=== PATIENT | female | born 1945 | race Caucasian/White ===

== ENCOUNTER → 2016-10-24 10:06 | Outpatient (CLI) | payer MEDICARE, BC ==
[2016-02-08 12:21] VITALS: BMI 33.9
[~2016-10-24 10:06] MED LIST: CARAFATE1 G PO; CYMBALTA60 MG PO; DILAUDID2 MG PO; DULERA 200 MCG8.8 GM INH; FUROSEMIDE40 MG PO; HYDROCODONE-APA1 TAB PO; MIRAPEX1 MG PO; PROAIR HFA8.5 GM INH; PROTONIX40 MG PO; RESTORIL15 MG PO; SPIRIVA18 MCG INH; THEOPHYLLINE A300 MG PO; ZANAFLEX4 MG PO; ZOFRAN ODT4 MG/UDTAB PO
== END | disposition home or self-care (01) ==
LOC: D.US 10:06
DX: L03.119 Cellulitis of unspecified part of limb (principal); M79.661 Pain in right lower leg; M79.662 Pain in left lower leg

== ENCOUNTER → 2017-02-01 18:56 | Outpatient (CLI) | payer MEDICARE, BC ==
[2016-02-08 12:21] VITALS: BMI 33.9
== END | disposition home or self-care (01) ==
LOC: D.LABREF 18:56
DX: M16.11 Unilateral primary osteoarthritis, right hip (principal); Z11.8 Encounter for screening for other infectious and parasitic diseases

== ENCOUNTER → 2017-03-07 19:45 | Outpatient (CLI) | payer MEDICARE, BC ==
[2016-02-08 12:21] VITALS: BMI 33.9
== END | disposition home or self-care (01) ==
LOC: D.LABREF 19:45
DX: M16.11 Unilateral primary osteoarthritis, right hip (principal); Z11.8 Encounter for screening for other infectious and parasitic diseases

== ENCOUNTER 2017-03-15 10:00 | Inpatient (IN) | payer MEDICARE, BC ==
[~2017-03-15 10:00] MED LIST changes: +K-TAB10 MEQ PO; -MIRAPEX1 MG PO; +MIRAPEX1.5 MG PO; +THEOPHYLLINE A200 MG PO; -THEOPHYLLINE A300 MG PO; +TRAZODONE HCL50 MG PO
[2017-03-15 11:59] LABS: BASOPHILS 0.3 % (0-2); HEMATOCRIT 40.7 % (36.0-48.0); HEMOGLOBIN 13.5 g/dL (12-16); IMMATURE GRANULOCYTES 0.1 % (0-5); LYMPHOCYTES 23.9 % (15-50); MCH 29.9 pg (26.0-34.0); MCHC 33.2 g/dL (31.0-37.0); MEAN PLATELET VOLUME 9.5 fL (7.4-10.4); MONOCYTES 8.5 % (2-11); NEUTROPHILS 62.2 % (40-80); PLATELET COUNT 207 10x3/uL (130-400); RBC 4.52 10x6/uL (4.00-5.40); RDW 14.4 % (11.5-14.5); WBC 7.4 10x3/uL (4.8-10.8)
[2017-03-15 12:09] LABS: CALCIUM 9.7 mg/dL (8.5-10.1); CARBON DIOXIDE 30.4 mmol/L (21.0-32.0); CREATININE - SERUM 0.9 mg/dL (0.6-1.3)
[2017-03-15 12:12] LABS: ANION GAP 11.6 mmol/L (8-16)
[2017-03-15 12:28] LABS: APTT 22.7 SECONDS (22.8-39.4); INR 0.94 (0.85-1.17); PROTIME 12.4 SECONDS (11.6-15.0)
[2017-03-15 12:43] LABS: APPEARANCE CLEAR (CLEAR); BACTERIA FEW /hpf (NONE SEEN); BILIRUBIN NEGATIVE (NEGATIVE); COLOR DK YELLOW (YELLOW); EPITHELIAL CELLS 0-5 /hpf (0-5); GLUCOSE NEGATIVE (NEGATIVE); KETONE NEGATIVE (NEGATIVE); MUCUS <1+ /lpf (NONE SEEN); NITRITE NEGATIVE (NEGATIVE); PROTEIN NEGATIVE (NEGATIVE); SPECIFIC GRAVITY 1.015 (1.005-1.020); UROBILINOGEN NORMAL (NORMAL); WHITE CELLS - URINE 0-5 /hpf (0-5)
[2017-03-20 11:55] VITALS: BMI 34.3
--- NOTE | 2017-03-20 16:07 | NUR ---
IV PATIENT HAD UPON ARRIVAL TO PACU INFILTRATED. NEW 22G IV STARTED LEFT ARM.
--- NOTE | 2017-03-20 16:34 | NUR ---
PATIENT STATES PAIN 10/10 AFTER 20 MG MORPHINE. PATIENT TRANSFERRED TO FLOOR TO RN TRANSITIONAL
[2017-03-20 16:54] VITALS: BP 129/75
--- NOTE | 2017-03-20 16:55 | NUR ---
RECIEVED PT TO FLOOR FROM RECOVERY. POST-OP VITALS INITIATED. ASSESSMENT DONE PER FLOWSHEET. BED IN LOW POSITION AND CALL LIGHT WITHIN REACH.
[2017-03-20 17:10] VITALS: BP 138/62
[2017-03-20 17:25] VITALS: BP 139/73
[2017-03-20 17:39] VITALS: BP 129/75; BMI 34.3
[2017-03-20 17:40] VITALS: BP 126/58
[2017-03-20 18:11] LABS: INR 1.01 (0.85-1.17); PROTIME 13.2 SECONDS (11.6-15.0)
[2017-03-20 20:00] VITALS: BP 132/65
--- NOTE | 2017-03-20 23:49 | NUR ---
REC'D.EYES CLOSED RESP. DEEP AND EVEN. 02 4L NC O2 SATS 89%.DEEP BREATHS INCENTIVE SPIROMETER ENCOURAGED. SATS UP TO 93%. AT BEDSIDE.DRSG. DRY AND INTACT TORIGHT HIP.FOOT PINK AND WARM PEDAL PULSE PRESENT.WILL CONTINUE TO MONITOR FOR ANY CHGES. IN NEUROVASCULAR STATUS AND FOLLOW CURRENT PLAN OF CARE.
[2017-03-21] VITALS: BP 145/77
--- NOTE | 2017-03-21 01:24 | NUR ---
RN NOTE: PT RESTING IN SEMI REYNOLDS'S POSITION WATCHING TV. IV IN LEFT FA PATENT WITH 1/2 NS INFUSING AT10O ML / HR. O2 IN USE VIA NC AT 3L. PT REQUESTING TO USE BEDPAN...ASSISTED WITH USE WITH MATERIAL HANDLING CREW SUPERVISOR. SCD'S IN PLACE ON BLE. WILL CONTINUE TO MONITOR FOR NEEDS.
--- NOTE | 2017-03-21 03:41 | NUR ---
PT. 02 SATS CONTINUE TO DROP TO 89% STATES AND NURSES SAID I CAN HAVE A PUSH BUTTON,EXPLAINED DESAT VS IV PAIN MED STATES RATHER NOT BREATH TO HURT'
[2017-03-21 04:00] VITALS: BP 121/49
[2017-03-21 05:41] LABS: HEMATOCRIT 31.1 % (36.0-48.0); MCH 29.2 pg (26.0-34.0); MCHC 32.2 g/dL (31.0-37.0); MCV 90.9 fL (80.0-100.0); RBC 3.42 10x6/uL (4.00-5.40); RDW 14.5 % (11.5-14.5); WBC 7.4 10x3/uL (4.8-10.8)
--- NOTE | 2017-03-21 07:30 | NUR ---
PATIENT RECEIVED IN MID REYNOLDS POSITION ALERT AND RESTING QUIETLY. NO SIGNS OF DISTRESS NOTED. PROVIDED WITH COFFEE PER REQUEST. DENIES NEEDS. SIDE RAILS UP X2. BED IN LOW POSITION. CALL LIGHT AND ACCESS CONTROL OFFICER BUTTON IN REACH. BED ALARM ON.
[2017-03-21 08:20] VITALS: BP 109/44
--- NOTE | 2017-03-21 08:43 | NUR ---
PATIENT ALERT IN BED. NO SIGNS OF DISTRESS NOTED. SCHEDULED MEDICATION ADMINISTERED. SCDS ON BILATERALLY. ENCOURAGED USE OF INCENTIVE SPIROMETER. DENIES NEEDS. SIDE RAILS UP X2. BED IN LOW POSITION. CALL LIGHT AND MULE RIDER BUTTON IN REACH.
--- NOTE | 2017-03-21 10:00 | NUR ---
IV TO LEFT WRIST PARTIALLY OUT. IV D/C WITH CATH TIP INTACT. SITE COVERED WITH GAUZE AND BANDAID. NEW 22 GAUGE IV SITED TO LEFT FOREARM X1 ATTEMPT. FLUSHES EASY WITH BRISK BLOOD RETURN PRESENT. SECURED WITH TAPE AND TEGADERM. IVF INFUSING WITHOUT DIFFICULTY.
--- NOTE | 2017-03-21 12:30 | NUR ---
PER CARMEN SUN DRESSING TO RIGHT HIP SATURATED AND LEAKING. DRESSING CHANGED. NEW AQUACEL AG PLACED OVER INCISION. LINEN CHANGE COMPLETE.
[2017-03-21 12:47] VITALS: BP 118/52
--- NOTE | 2017-03-21 13:05 | NUR ---
ICE PACK PLACED TO RIGHT HIP. SCDS ON BILATERALLY. FAMILY PRESENT. DENIES NEEDS. SIDE RAILS UP X2. BED IN LOW POSITION. CALL LIGHT IN REACH.
[2017-03-21 15:54] VITALS: BP 105/54
--- NOTE | 2017-03-21 17:20 | NUR ---
ASSISTED UP TO CHAIR FOR DINNER. INSTRUCTED NOT TO GET UP BY SELF AND CALL FOR HELP WHEN READY TO GO BACK TO BED. STATES UNDERSTANDING. CALL LIGHT IN REACH. FAMILY AT BEDSIDE.
--- NOTE | 2017-03-21 18:32 | OP ---
PATIENT NAME: KARISHMA PAGE MEDICAL RECORD: [id number] :45 LOCATION:[facility] ADMISSION DATE:03/20/17 SURGEON: SURESH MARADIAGA MD DATE OF OPERATION: 03/20/2017 PREOPERATIVE DIAGNOSIS: Degenerative arthritis, right hip. POSTOPERATIVE DIAGNOSIS: Degenerative arthritis, right hip. PROCEDURE: Right total hip arthroplasty. SURGEON: Suresh Maradiaga MD. ANESTHESIA: General. INTRAOPERATIVE COMPLICATIONS: None. SUMMARY OF PATHOLOGIC FINDINGS: The patient had severe osteoarthritis of the right hip consistent with the preoperative radiographs. IMPLANTS USED: [place] Anato hip stem size 6 right, Tritanium hemispherical cluster hole shell X3 poly insert 36-mm alpha code E, LFIT anatomic femoral head size 36 standard. ESTIMATED BLOOD LOSS: 300 cc. OPERATIVE SUMMARY IN DETAIL: After obtaining the appropriate preoperative orthopedic surgery consent as well as anesthetic consultation, evaluation and clearance, the patient was brought to the operating room and placed on the operating table in supine position. After adequate general laryngeal mask airway was administered, the patient was placed in left lateral decubitus position. All pressure points were well padded to include down leg peroneal pad as well as axillary roll. The patient was held firmly to the operating table using the vacuum pack suction system. Left lower extremity and hip were then prepped and draped in a routine sterile fashion. Curvilinear incision was made over the greater trochanter, taken down to the level of the IT band, which was split in line with the fibers of the IT band to reveal the gluteus medius minimus attachment. These were reflected anteriorly. The hip capsule was split in a T-type fashion and saved for later reapproximation. The hip was dislocated and the femoral neck cut was made using the Anato femoral neck cutting guide. Attention then turned to the acetabulum. Acetabulum was serial and sequentially debrided of its labrum. Serial and sequential reaming were done for a size 54 cup, which was put into place with good fit and fill. Polyethylene was snapped into place, it was checked for stability. Attention was then turned to the proximal femur. Serial broaching was done for the Anato size 6. The Anato size [address] Trial was undertaken with the femoral head. It was felt that the 0 was the most appropriate. This was put into place, reduced, taken through range of motion and found to be stable. Wound was copiously irrigated. The hip capsule was closed with #2 Ethibond followed by reapproximation of the gluteus medius and minimus back to the greater trochanter in a transosseous fashion. The IT band was closed with #2 Ethibond. This was followed by #1 Vicryl, 2-0 Vicryl and skin lupillo. Sterile dressings were applied. Please note that intraoperative radiographs were taken and showed good position and placement of all components. The patient was awakened and taken to recovery in stable condition. All final needle and sponge counts were correct. OPERATIVE REPORT [id number] KARISHMA PAGE TRANSINT:[id number] Voice Confirmation ID: [id number] DOCUMENT ID: [id number] ASHWINI GONZALEZ, SURESH BILLINGS at 1832 CC: [id number] DICTATION DATE: 03/20/17 162 HUMAN RESOURCE INTERNSHIP: 03/20/17 194 ADM IN [facility] [address] [place] [address]
[2017-03-21 20:00] VITALS: BP 113/59
[2017-03-22] VITALS: BP 107/53
--- NOTE | 2017-03-22 01:57 | NUR ---
REC'D. CHGE OF SHIFT DRSG DRY AND INTACT TO RIGHT HIP.FOOT PINK AND WARM. PEDAL PULSE PRESENT.WIGGLE TOES AND DORSIFLEXES WITHOUT DIFFICULTY HEELS BRIDGED.WILL CONTINUE TO MONITOR FOR ANY CHGES. NEUROVASCULAR STATUS AND FOLLOW CURRENT PLAN OF CARE.
--- NOTE | 2017-03-22 02:30 | NUR ---
NO SIGNS OF ACUTE DISTRESS NOTED. PT IS LYING IN BED WITH HER CALL LIGHT IN REACH. BED IN LOWEST POSITION. WILL CONT TO MONITOR.
[2017-03-22 04:00] VITALS: BP 100/59
[2017-03-22 05:38] LABS: HEMATOCRIT 32.7 % (36.0-48.0); HEMOGLOBIN 10.5 g/dL (12-16); MCH 29.4 pg (26.0-34.0); MCHC 32.1 g/dL (31.0-37.0); MCV 91.6 fL (80.0-100.0); MEAN PLATELET VOLUME 9.8 fL (7.4-10.4); RBC 3.57 10x6/uL (4.00-5.40); RDW 14.8 % (11.5-14.5); WBC 6.2 10x3/uL (4.8-10.8)
--- NOTE | 2017-03-22 07:20 | NUR ---
PATIENT RECEIVED ALERT IN MID REYNOLDS POSITION. NO SIGNS OF DISTRESS NOTED. DENIES NEEDS. SIDE RAILS UP X2. BED IN LOW POSITION. CALL LIGHT IN REACH.
[2017-03-22 08:00] VITALS: BP 114/43
--- NOTE | 2017-03-22 08:50 | NUR ---
PATIENT ALERT IN BED. NO SIGNS OF DISTRESS NOTED. REPOSITIONED IN BED. SCHEDULED MEDICATION ADMINISTERED. DENIES NEEDS. SCDS ON BILATERALLY. SIDE RAILS UP X2. BED IN LOW POSITION. CALL LIGHT IN REACH. BED ALARM ON.
--- NOTE | 2017-03-22 11:00 | NUR ---
SITTING UP IN CHAIR AT BEDSIDE WITH FAMILY PRESENT. NO SIGNS OF DISTRESS NOTED. CALL LIGHT IN REACH.
[2017-03-22 12:26] VITALS: BP 122/79
--- NOTE | 2017-03-22 14:00 | NUR ---
PATIENT ASSISTED UP TO BSC THEN BACK TO BED. POSITIONED FOR COMFORT. DRESSING TO RIGHT HIP COMING LOOSE. DRESSING REMOVED. DOMINIC INTACT. NO REDNESS OR INFLAMMATION NOTED TO INCISION. NEW AQUACEL AG PLACED OVER INCISION. BRUISING NOTED TO RIGHT HIP. SIDE RAILS UP X2. BED IN LOW POSITION. CALL LIGHT IN REACH. BED ALARM ON.
--- NOTE | 2017-03-22 14:03 | NUR ---
Patient Name: KARISHMA PAGE Admission Status: Urgent Accout number: [id number] Admission Date: 03-20-2017 : 1945 Admission Diagnosis:UNILATERAL PRIMARY OSTEOARTHRITIS, RIGHT HIP Attending: SURESH MARADIAGA Current LOS: 2 Anticipated DC Date: Planned Disposition: Home Primary Insurance: MEDICARE A & B Discharge Planning Comments: CM met with patient to discuss discharge planning needs. Patient lives independently with her , Maxi. Maxi will be the one to drive her home at discharge. She stated that she has one flight of stairs to go up in her home. She hopkins s a bedside commode, o2 with a concentrator (from [employer]) walker and shower chair. She would like to do inpatient rehab. Referral sent. CM will continue to follow and assist with discharge planning needs. PCP: Silvio BATEMAN Maxi () [phone] Ccie: Parisa Allen
--- NOTE | 2017-03-22 16:05 | NUR ---
PATIENT IN MID REYNOLDS POSITION RESTING WITH EYES CLOSED. RESPIRATIONS EVEN AND UNLABORED. SIDE RAILS UP X3. BED IN LOW POSITION. CALL LIGHT IN REACH. BED ALARM ON.
[2017-03-22 16:07] VITALS: BP 109/55
[2017-03-22 20:00] VITALS: BP 111/52
--- NOTE | 2017-03-23 03:59 | NUR ---
IN BED ASSISTED TO BEDPAN REFUSED BEDSIDE COMMODE. VOIDED WITHOUT DIFFICULTY.DRSG. DRY AND INTACT TO LEFT HIP.FOOT PINK/WARM/PEDAL PULSE PRESENT.WIGGLES TOES AND DORSIFLEXES. WILL CONTINUE TO MONITOR FOR ANY CHGES. IN NEUROVASCULAR STATUS AND FOLLOW CURRENT PLAN OF CARE
[2017-03-23 04:00] VITALS: BP 114/56
--- NOTE | 2017-03-23 05:44 | NUR ---
RESTING IN BED WITH EYES CLOSED. NO S/S OF DISTRESS OBSERVED. IV TO LEFT FOREARM PATENT AND RUNNING 1/2 NS @ KVO. O2@3 LITERS PER N/C. RESP. EVEN AND UNLABORES. CALL LIGHT AND OVERBED TABLE IN REACH.
--- NOTE | 2017-03-23 07:24 | NUR ---
Rehab Note- Acute Rehab Prescreen order received. The patient had an elective YOLA and this is not a qualifying acute inpatient rehab diagnosis. Will follow at this time for any post op complications. Thank you for this referral! Kyung Trejo RN Clinical Liaison, [facility] Rehab
--- NOTE | 2017-03-23 07:47 | NUR ---
AWAKE AND ALERT WITH OXYGEN ON 3L VIA NC AND RESPIRATIONS EVEN AND NON LABORED. BED IN LOWEST POSITION WITH SRX1 AND WHEELS LOCKED. CALL LIGHT IN REACH, PROVIDED PT WITH COFFEE. WILL CONTINUE WITH PLAN OF CARE.
[2017-03-23 07:51] VITALS: BP 107/56
[2017-03-23] MEDS ORDERED: ELIQUIS2.5 MG PO (08:17)
[2017-03-23] MEDS ORDERED: COLACE100 MG PO (08:17)
[2017-03-23] MEDS ORDERED: PERCOCET 10/3251 TA1 PO (08:17)
--- NOTE | 2017-03-23 09:06 | NUR ---
SCHEDULED MEDICATIONS ADMINISTERED AT THIS TIME, WELL PRN PERCOCET FOR PAIN. WILL D/C SAND PLANT ATTENDANT PER ORDER. MEDICATIONS TAKEN WITHOUT DIFFICULTY. SPOKE WITH AURORA SUAREZ TO GET PT UPDRAFT TREATMENTS ORDERED. AT BEDSIDE AND CALL LIGHT IN REACH, WILL CONTINUE WITH PLAN OF CARE.
[2017-03-23 12:10] VITALS: BP 95/52
--- NOTE | 2017-03-23 13:50 | NUR ---
PATIENT BEING DISCHARGED TO [facility] TO A SKILLED BED TODAY. IN ROOM INFORMATION SENT TO [facility]. [facility] WILL BE THE ONE TO TRANSPORT THEM VIA THEIR [facility]
--- NOTE | 2017-03-23 16:39 | NUR ---
DISCHARGE PAPERS AND INSTRUCTIONS GIVEN TO PT AND , IV REMOVED TIP INTACT, QUESTIONS ANSWERED, REPORT CALLED TO JOVANI QUINTERO AT [facility], DISCHARGED PER WITH BELONGINGS
[2017-07-19] MEDS ORDERED: HYDROCODONE-APA1 TAB PO (15:31)
== END 2017-03-23 16:40 | DRG 470 ==
LOC: D.SDCHOLD 03-20 09:18 → D.MS 03-20 09:18 → D.M2 03-20 10:00 → D.SDCHOLD 03-20 10:00 → D.MS 03-20 15:59
PROVIDERS: ADMIT Orthopaedic Surgery
PROC: 0SR902Z Replacement of Right Hip Joint with Metal on Polyethylene Synthetic Substitute, Open Approach (ICD-10-PCS; principal; 2017-03-20 12:15)
DX: M16.11 Unilateral primary osteoarthritis, right hip (principal); D62 Acute posthemorrhagic anemia; J44.9 Chronic obstructive pulmonary disease, unspecified; G25.81 Restless legs syndrome; F32.9 Major depressive disorder, single episode, unspecified; K21.9 Gastro-esophageal reflux disease without esophagitis

== ENCOUNTER → 2017-04-03 12:32 | Outpatient (CLI) | payer MEDICARE, BC ==
[2017-03-20 17:39] VITALS: BMI 34.3
[~2017-04-03 12:32] MED LIST changes: +AMOXICILLIN875 MG PO; +BACTRIM DS TABL1 TAB PO; +COLACE100 MG PO; +ELIQUIS2.5 MG PO; +MILK OF MAGNESI30 ML PO; +PERCOCET 10/3251 TA1 PO; +VIBRAMYCIN 100100 MG PO
== END | disposition home or self-care (01) ==
LOC: D.US 12:00
DX: R60.0 Localized edema (principal)

== ENCOUNTER 2017-04-14 21:10 | Inpatient (IN) | payer MEDICARE, BC ==
[~2017-04-14] VITALS: Ht 167.6 cm; Wt 86.2 kg
[~2017-04-14 21:10] MED LIST changes: -AMOXICILLIN875 MG PO; -BACTRIM DS TABL1 TAB PO; -MILK OF MAGNESI30 ML PO; -VIBRAMYCIN 100100 MG PO
[2017-04-14 21:53] LABS: BASOPHILS 0.5 % (0-2); EOSINOPHILS 4.4 % (0-7); HEMATOCRIT 32.2 % (36.0-48.0); HEMOGLOBIN 10.3 g/dL (12-16); IMMATURE GRANULOCYTES 0.3 % (0-5); MCH 28.6 pg (26.0-34.0); MCV 89.4 fL (80.0-100.0); MEAN PLATELET VOLUME 9.2 fL (7.4-10.4); MONOCYTES 12.9 % (2-11); NEUTROPHILS 65.9 % (40-80); RDW 14.4 % (11.5-14.5); WBC 6.4 10x3/uL (4.8-10.8)
[2017-04-14 21:54] LABS: PLATELET COUNT 351 10x3/uL (130-400)
[2017-04-14 22:08] LABS: ALBUMIN 2.7 g/dL (3.4-5.0); ALKALINE PHOSPHATASE 192 U/L (46-116); ALT (SGPT) 16 U/L (10-68); BILIRUBIN - TOTAL 0.25 mg/dL (0.2-1.3); CALC OSMOLALITY 273 mosm/kg (275-300); CALCIUM 9.6 mg/dL (8.5-10.1); CARBON DIOXIDE 25.6 mmol/L (21.0-32.0); CHLORIDE - SERUM 102 mmol/L (98-107); CREATININE - SERUM 0.7 mg/dL (0.6-1.3); GLUCOSE 111 mg/dL (74-106); POTASSIUM - SERUM 4.3 mmol/L (3.5-5.1); PROTEIN - SERUM 6.1 g/dL (6.4-8.2); SODIUM 137 mmol/L (136-145); UREA NITROGEN 10 mg/dL (7-18); eGFR NON AFRICAN AMERICAN 87 mL/min (90-120)
--- NOTE | 2017-04-15 02:17 | NUR ---
PT ARRIVED TO ROOM 2129 VIA W/C FROM ER. NO DISTRESS NOTED. WILL CONTINUE TO MONITOR.
--- NOTE | 2017-04-15 02:19 | NUR ---
PATIENT ARRIVED FROM THE ER VIA WHEELCHAIR, O2 AT 3 LITER VIA NC, ALERT AND ORIENTED TO ROOM AND CALL LIGHT. RR. CALL LIGHT IN REACH.
[2017-04-15] MEDS ORDERED: BACTRIM DS TABL1 TAB PO (02:26)
[2017-04-15] MEDS ORDERED: VIBRAMYCIN 100100 MG PO (02:26)
[2017-04-15 04:00] VITALS: BP 111/43
[2017-04-15 04:12] VITALS: BP 111/43; BMI 30.7
[2017-04-15] MEDS ORDERED: MILK OF MAGNESI30 ML PO (04:28)
[2017-04-15 05:23] LABS: BASOPHILS 0.4 % (0-2); EOSINOPHILS 7.6 % (0-7); HEMATOCRIT 29.3 % (36.0-48.0); HEMOGLOBIN 9.3 g/dL (12-16); IMMATURE GRANULOCYTES 0.2 % (0-5); LYMPHOCYTES 23.7 % (15-50); MCH 28.4 pg (26.0-34.0); MCHC 31.7 g/dL (31.0-37.0); MCV 89.6 fL (80.0-100.0); MEAN PLATELET VOLUME 8.7 fL (7.4-10.4); MONOCYTES 18.2 % (2-11); NEUTROPHILS 49.9 % (40-80); PLATELET COUNT 327 10x3/uL (130-400); RBC 3.27 10x6/uL (4.00-5.40); RDW 14.6 % (11.5-14.5); WBC 5.1 10x3/uL (4.8-10.8)
[2017-04-15 05:41] LABS: ANION GAP 9.1 mmol/L (8-16); CALCIUM 9.6 mg/dL (8.5-10.1); CARBON DIOXIDE 29.6 mmol/L (21.0-32.0); CREATININE - SERUM 0.8 mg/dL (0.6-1.3); POTASSIUM - SERUM 3.7 mmol/L (3.5-5.1)
--- NOTE | 2017-04-15 07:30 | NUR ---
REPORT RECEIVED. PT RESTING QUIETLY, RR EVEN AND UNALBORED. PT C/O PAIN IN HER RIGHT HIP. PT JUST RECEIVED PAIN MEDICINE ABOUT 0640. WILL PAGE THE PHYSICAIN REGARDING PT REQUEST. DENIES FURTHER NEEDS AT THIS TIME, WILL CTM.
[2017-04-15 08:16] VITALS: BP 129/57
[2017-04-15 11:23] VITALS: BP 105/48
--- NOTE | 2017-04-15 12:10 | NUR ---
INITIATED CHIEF SAFETY OFFICER PER ORDERS. EDUCATED PT ON HOW TO USE CHIEF SAFETY OFFICER. VERBALIZED UNDERSTANDING. PT REQUESTED BSC, PROVIDED, WILL CTM.
[2017-04-15 13:28] VITALS: Ht 167.6 cm; Wt 86.2 kg
--- NOTE | 2017-04-15 15:24 | NUR ---
OBTAINED CONSENTS FOR PROCEDURE TOMORROW. PT VERBALIZED UNDERSTANDING OF PLAN FOR TOMORROW. DENIES FURTHER NEEDS, WILL CTM.
[2017-04-15 15:46] VITALS: BP 145/53
--- NOTE | 2017-04-15 16:00 | NUR ---
SCDS ORDERED. EXPLAINED RATIONALE TO PT, VERBALIZED UNDERSTANDING. PT REFUSED TO WEAR SCDS AT THIS TIME.
--- NOTE | 2017-04-15 18:14 | NUR ---
PT DENIES PAIN AND NEEDS AT THIS TIME. RR EVEN AND UNLABORED. RR EVEN AND UNLABORED, WILL GIVE REPORT ON PT CONDTION FOR THE DAY.
[2017-04-15 20:00] VITALS: BP 155/54
--- NOTE | 2017-04-15 20:30 | NUR ---
IV LEAKING AND ANGIOCATH INTERMEDIATE SLIPPED OUT OF SITE. DISCONTINUED AND RESITED WITH 20 GA ANGIOCATH X1 STICK TO RIGHT FOREARM. PT FREEMAN WELL. WILL CONT TO MONITOR.
[2017-04-16] VITALS (7 sets, daily range): BP systolic 120–144; BP diastolic 47–94
[2017-04-16 06:37] LABS: BASOPHILS 0.2 % (0-2); EOSINOPHILS 6.3 % (0-7); HEMATOCRIT 32.4 % (36.0-48.0); HEMOGLOBIN 10.4 g/dL (12-16); IMMATURE GRANULOCYTES 0.2 % (0-5); LYMPHOCYTES 24.2 % (15-50); MCH 28.9 pg (26.0-34.0); MCHC 32.1 g/dL (31.0-37.0); MEAN PLATELET VOLUME 8.9 fL (7.4-10.4); MONOCYTES 11.4 % (2-11); NEUTROPHILS 57.7 % (40-80); PLATELET COUNT 385 10x3/uL (130-400); RDW 14.5 % (11.5-14.5)
[2017-04-16 06:38] LABS: WBC 6.5 10x3/uL (4.8-10.8)
[2017-04-16 06:49] LABS: INR 1.02 (0.85-1.17); PROTIME 13.2 SECONDS (11.6-15.0)
[2017-04-16 06:50] LABS: APTT 33.8 SECONDS (22.8-39.4)
[2017-04-16 07:00] LABS: CALC OSMOLALITY 275 mosm/kg (275-300); CALCIUM 10.1 mg/dL (8.5-10.1); CARBON DIOXIDE 28.8 mmol/L (21.0-32.0); CHLORIDE - SERUM 101 mmol/L (98-107); CREATININE - SERUM 0.7 mg/dL (0.6-1.3); GLUCOSE 114 mg/dL (74-106); SODIUM 138 mmol/L (136-145); UREA NITROGEN 9 mg/dL (7-18); eGFR NON AFRICAN AMERICAN 87 mL/min (90-120)
--- NOTE | 2017-04-16 07:40 | NUR ---
AM ROUNDING- RECEIVED REPORT FROM MEDICAID SPECIALIST NURSE CHAZ. PT IS CURRENTLY SITTING UP ON SIDE OF BED WITH . PT APPEARS TO BE WORRIED/SAD REGARDING SURGERY TODAY. THIS NURSE COMFORTS PT. IS AT BEDSIDE ALSO COMFORTING PT. PT IS ON 02 AT 3L VIA NC. NO MONITOR. IV SEEN TO RIGHT FOREARM WITH NS RUNNING AT KVO (10CC). MASTER RIGGER PUMP WITH MORPHINE RUNNING AT 1MG Q10MIN ORDERED. PT IS NPO FOR PROCEDURE TODAY. CONSENTS ARE SIGNED AND IN CHART. EKG DONE BY MEDICAID SPECIALIST NURSE WARE AND IN CHART. NO NEED AT THIS CURRENT TIME. WILL CONTINUE TO MONITOR AND CONTINUE WITH PLAN OF CARE.
--- NOTE | 2017-04-16 08:07 | NUR ---
OC HERE FROM OR. THIS NURSE ASKED WHICH AM MEDICATIONS WOULD BE FINE TO GO AHEAD AND GIVE PT (WHILE SHOWING HIM AM MEDICATION LIST). OC STATES TO GO AHEAD AND GIVE IV VANC BUT HOLD ALL OTHERS. WILL DO DIRECTED.
--- NOTE | 2017-04-16 08:59 | NUR ---
PT GIVEN PRE-OP MEDICATIONS WITH SIP OF WATER. IV FLUIDS HUNG AND TUBING PRIMED. PT HAS BEEN NPO. CONSENTS ARE SIGNED AND IN CHART. AWAITING OR TO GET PT.
--- NOTE | 2017-04-16 09:21 | NUR ---
PT TO OR VIA BED.
--- NOTE | 2017-04-16 11:49 | NUR ---
PT BACK FROM OR VIA BED. PT IS ALERT AND ORIENTED. ON 02 AT 3L VIA NC. WOUND WITH WOUND VAC SEEN TO RIGHT HIP AREA. OR NURSE HOOKED WOUND VAC UP TO WALL. VITAL SIGNS BEING TAKEN PER POLICY. WILL CONTINUE TO MONITOR.
--- NOTE | 2017-04-16 13:00 | NUR ---
CALLED INTO PTS ROOM BY DYLAN LOPEZ FOR PT ACCIDENTLY PULLING OUT IV CATHETER TO RIGHT WRIST/FOREARM AREA. THIS NURSE ATTEMPTED TO RESITE PT X2 STICKS THAT WAS NOT SUCCESSFUL. WILL SEE IF ANOTHER NURSE CAN RESITE PT. WILL CONTINUE TO MONITOR.
--- NOTE | 2017-04-16 13:16 | NUR ---
CARMEN DIAZ SITED PT WITH 22G IV TO RIGHT FOREARM X1 STICK.
--- NOTE | 2017-04-16 16:59 | NUR ---
DR. MARADIAGA ON UNIT. INFORMED HIM THAT PT IS HAVING GOUT PAIN (DUE TO EATING SHRIMP A FEW DAYS AGO) AND PT IS WANTING SOMETHING FOR GOUT. I ASKED DR. MARADIAGA IF I COULD ORDER PT ZYLOPRIM OR SOMEHTING FOR GOUT. DR. MARADIAGA STATES TO ORDER HER SOMETHING HE DOESN'T KNOW WHAT MEDICATIONS GO FOR GOUT. WILL ORDER PT ZYLOPRIM STATED WITH DR. MARADIAGA.
--- NOTE | 2017-04-16 17:09 | NUR ---
PT IS CURRENTLY SITTING UP IN BED WITH EYES OPEN RESTING. IS AT BEDSIDE. ORDER PLACED FOR GOUT MEDICINE DISCUSSED WITH DR. MARADIAGA. NO FURTHER NEED AT THIS TIME. BRIDGER, CHARGING CRANE OPERATOR JUST CALLED TO SEE ABOUT PULLING GOUT MEDCICATION DUE TO PHARMACY NOT BEING HERE. WILL CONTINUE TO MONITOR.
--- NOTE | 2017-04-16 21:40 | NUR ---
PT C/O PAIN TO LEFT FOOT AND RIGHT HIP. RATES PAIN @ 10/10 ON PAIN SCALE. MORPHINE BOLUS 2 MG IV GIVEN ORDERED. WILL MONITOR.
[2017-04-17] VITALS: BP 130/49
--- NOTE | 2017-04-17 00:30 | NUR ---
TIMBER SPRINKLER SYRINGE CHANGED OUT AND PT GIVEN MORPHINE 2 MG IV BOLUS AT THIS TIME.
[2017-04-17 04:00] VITALS: BP 150/57
[2017-04-17 08:00] VITALS: BP 136/51
[2017-04-17 12:00] VITALS: BP 145/54
[2017-04-17 16:00] VITALS: BP 125/62
--- NOTE | 2017-04-17 19:10 | NUR ---
ROUNDING NOTE: PT IS LAYING IN BED AT CHANGE OF SHIFT, A,A,OX3. PT IS WEARING 3L OF OXYGEN VIA N/C. AT HOME, SHE USES 3L NC ONLY AT HS. ENCOURAGED PT TO TURN, COUGH, AND DEEP BREATHE. COUGH IS STRONG AND LOOSE, BUT NONPRODUCTIVE. PT HAS MORPHINE STUDY LEAD, NS @ KVO TO RIGHT FOREARM. IV SITE IS NOTED TO BE LEAKING AND NOT FLUSHING. IV D/C'D. WILL START A NEW IV. PT HAS A WOUND VAC TO RIGHT HIP INCISION, DSG C/D/I W/ GOOD SUCTION. PT REQUESTING ICE WATER, GIVEN PER REQUEST. WILL CONT TO MONITOR.
--- NOTE | 2017-04-17 19:14 | NUR ---
THIS SHIFT PT HAS RESTED IN BED. WOUND VAC ON AND CHECKED BY EMILY WOUND CARE NURSE. CO L KNEE PAIN. L KNEE SWOLLEN. SEE ASSESSMENT FOR FURTHER EVAL
--- NOTE | 2017-04-17 20:30 | NUR ---
IV RE-STARTED IN RIGHT WRIST. IT FLUSHED WELL INITIALLY, BUT BLEW SHORTLY AFTER WHEN IV ABX WERE HUNG AND STARTED. IV THEN RE-SITED TO LEFT WRIST. FLUSHING AND WORKING WELL. IV VANCO RUNNING AT SLOW RATE TO PERSERVE THE IV SITE, NS @ KVLO AND MORPHINE COOLING TOWER OPERATOR FOR PAIN. WILL CONT TO MONITOR.
[2017-04-17 22:18] VITALS: BP 106/36
[2017-04-18] VITALS (7 sets, daily range): BP systolic 103–120; BP diastolic 34–49
--- NOTE | 2017-04-18 01:30 | NUR ---
PT USED BEDPAN, CHANGED PAD B/C IT WAS SOILED. PT STATES THAT HER IV SITE IN THE RIGHT WRIST IS A LITTLE IRRITATED. VANCO COMPLETED NOW. NS RUNNING @KVO W/ MORPHINE RN ANESTHESIOLOGY. CHECKED IV SITE, FLUSHING WELL, NO EDEMA OR WARMTH. THE AREA IS SLIGHTLY RED, POSSIBLY FROM TAPE. PT STATES THAT IT FEELS BETTER SINCE THE VANCO IS DONE NOW. PT REQUESTING IV TORADOL FOR PAIN, GIVEN PER REQUEST. WILL CONT TO MONITOR.
[2017-04-18 05:58] LABS: HEMATOCRIT 28.6 % (36.0-48.0); HEMOGLOBIN 9.2 g/dL (12-16); MCH 28.6 pg (26.0-34.0); MCHC 32.2 g/dL (31.0-37.0); MCV 88.8 fL (80.0-100.0); MEAN PLATELET VOLUME 8.8 fL (7.4-10.4); RBC 3.22 10x6/uL (4.00-5.40); WBC 7.9 10x3/uL (4.8-10.8)
[2017-04-18 06:21] LABS: CALCIUM 9.6 mg/dL (8.5-10.1); CARBON DIOXIDE 30.7 mmol/L (21.0-32.0); POTASSIUM - SERUM 3.7 mmol/L (3.5-5.1)
--- NOTE | 2017-04-18 07:15 | NUR ---
AM ROUNDING DONE WITH NIGHT NURSE. ON 3L PER NC. RIGHT HIP SEEN WITH CLEAN DRESSING WITH A WOUND VAC SET AT 125 CONT. SUCTION, NO LEAK SEEN. LEFT INNER WRIST SEEN WITH NS INFUSING AT 10 CC/HR ALONG WITH A DECISION UNIT RN PAIN PUMP FOR PAIN CONTROL. PATIENT REFUSES TO WEAR BILATERAL SCD'S ORDERED. C/O PAIN TO LEFT KNEE (GOUT) PER PATIENT REPORT. WILL CONTINUE TO MONITOR.
--- NOTE | 2017-04-18 14:52 | NUR ---
PATIENT TO REFUSE HER MIRAPEX, STATES THAT SHE DOES NOT HAVE RESTLESS LEGS.
--- NOTE | 2017-04-18 17:37 | NUR ---
CALLED TO ROOM WITH PATIENT SHOWING ME HE LEFT FOOT WHICH IS NOW SWOLLEN, 2-3+. LEFT KNEE IS BETTER THIS AFTERNOON.
--- NOTE | 2017-04-18 18:26 | NUR ---
PATIENT HAS HAD NO APPETITE TODAY. HAVE ENCOURAGED HER TO EAT SMALL BITES, HER EVEN WENT AND GOT HER POTATO SOUP WHICH SHE DID NOT EAT. WILL CONTINUE TO ENCOURAGE SMALL MEALS.
--- NOTE | 2017-04-18 19:20 | NUR ---
ROUNDING NOTE: PT IS ALERT AND ORIENTED X3, LAYING IN BED AT CHANGE OF SHIFT. PT'S RIGHT HIP INCISION HAS WOUND VAC IN PLACE TO SUCTION. MORPHINE FITNESS CLUB MANAGER AND IV TORADOL PRN FOR PAIN. SHE IS REFUSING SCDS. OXYGEN IS 3L VIA NC. RIGHT FOREARM IV W/ MORPHINE FITNESS CLUB MANAGER AND NS RUNNING AT KVO. WILL CONT TO MONITOR.
[2017-04-19 04:00] VITALS: BP 101/43
[2017-04-19 05:41] LABS: HEMATOCRIT 28.5 % (36.0-48.0); HEMOGLOBIN 8.9 g/dL (12-16); MCH 28.2 pg (26.0-34.0); MCHC 31.2 g/dL (31.0-37.0); MCV 90.2 fL (80.0-100.0); MEAN PLATELET VOLUME 8.8 fL (7.4-10.4); RBC 3.16 10x6/uL (4.00-5.40); RDW 13.8 % (11.5-14.5); WBC 5.4 10x3/uL (4.8-10.8)
[2017-04-19 05:57] LABS: ANION GAP 7.7 mmol/L (8-16); CALCIUM 10.2 mg/dL (8.5-10.1); CARBON DIOXIDE 31.9 mmol/L (21.0-32.0); CREATININE - SERUM 0.9 mg/dL (0.6-1.3); POTASSIUM - SERUM 3.6 mmol/L (3.5-5.1)
--- NOTE | 2017-04-19 07:34 | NUR ---
CONCERNS ABOUT PT HAVING AN ALLERGIC RXN TO VANCO. HER RIGHT ARM BECAME SWOLLEN AND ITCHY DURING VANCO INFUSION, BUT HER SYMPTOMS RESOLVED ONCE THE VANCO WAS STOPPED. THE IV IS FLUSHING WELL AND THERE IS ISSUES WITH THE MORPHINE SWITCHBOARD WIRE WORKER HELPER OR NS RUNNING THROUGH THE IV SITE. WILL NEED TO CONTINUE TO MONITOR SITE. PT WOULD STRONGLY PREFER TO KEEP THIS SIGHT IF POSSIBLE B/C SHE IS A TOUGH STICK AND DOESN'T WANT TO BE STUCK AGAIN AT THIS POINT UNLESS SHE ABSOLUTELY HAS TO. THIS INFO WAS REPORTED TO THE DAY RN WHO WILL ADDRESS POSSIBLE ALLERGY WITH .
[2017-04-19 08:00] VITALS: BP 135/59
--- NOTE | 2017-04-19 08:39 | NUR ---
INTRODUCED MYSELF TO PT PRIMARY RN FOR TODAYS SHIFT. PT A&O SITTING UP IN BED RESTING QUIETLY. SHIFT ASSESSMENT COMPLETED. PT REFUSED HER PIV VANCOMYCIN AND STATES SHE HAD AN ALLERGIC REACTION AND HER ARM STARTED SWELLING AND TURNED RED. NOTIFIED PRIMARY AND THEY WANT TO TRY IT AGAIN AT A SLOWER RATE TO SEE IF ANY FURTHER REACTION NOTED. PT HAS A MAINFRAME ANALYST GOING HOWEVER ORDER HAS FALLEN OFF, PRIMARY GAVE NEW ORDERS TO RESTART PREVIOUS DOSE OF MORPHINE MAINFRAME ANALYST. R.HIP HAS WOUND VAC IN PLACE AND WILL NEED CHANGED TODAY PER WOUND CARE NURSE. PTS LEFT FOOT SLIGHTLY SWOLLEN PULSES STRONG AND PALP PT REFUSED LASIX AND STATES SHE WILL GET CRAMPS. PT ALSO REFUSES SCDS BUT I ENCOURAGED HER TO GET OOB WITH MEALS AND FOR BR. PT DENIES ANY CURRENT PAIN OR NEEDS. CL IN REACH, BED IN LOWEST, SIDE RAILS X2. WILL CPOC.
--- NOTE | 2017-04-19 08:57 | NUR ---
PT ALLOWED ME TO START VANCOMYCIN AT A SLOWER RATE. INFUSING VIA R.FA PIV WILL CONTINUE TO MONITER CLOSELY FOR ANY REACTION AT THAT SITE.
--- NOTE | 2017-04-19 10:55 | NUR ---
PTS R.FA PIV LEAKING, D/C WITH CATH TIP FULLY INTACT. 22 GUAGE STARTED X1 ATTEMPT TO L.FA AND VANCOMYCIN IS INFUSING. PT SITTING UP ON EDGE OF BED RESTING WITH FAMILY AT BEDSIDE. NO FURTHER NEEDS AT THIS TIME. CL IN REACH. WILL CPOC.
--- NOTE | 2017-04-19 11:18 | NUR ---
Nutrition Follow Up: Pt stated that her appetite is poor. She refuses Pilo at this time. Pt is eating 25% meal avg on a regular diet. Noted pt with wound vac. +BM 04/15/17. Labs reviewed. Meds noted including Lasix. Rec continue regular diet as tolerated when medically feasible. RD following.
--- NOTE | 2017-04-19 14:07 | NUR ---
PRN TORADOL GIVEN FOR BREAKTHROUGH PAIN, PT ABOUT TO HAVE R.HIP WOUND VAC CHANGED AND WANTED IT PRIOR. NO FURTHER NEEDS NOTED AT THIS TIME. WILL CPOC.
--- NOTE | 2017-04-19 14:20 | NUR ---
WOUND VAC DRESSING CHANGE WOUND TYPE: surgical WOUND LOCATION: right hip WOUND AGE IN MONTHS: 3 days post surgical I&D DEBRIDEMENT ATTEMPTED IN LAST 10 DAYS? DATE/TYPE: 04/16/17 I&D SERIAL DEBRIDEMENTS REQUIRED? unknown MEASUREMENT DATE: 04/19/17 13.5cm x 5.5cm x 3.5cm x 3.5cm from 12-6 oclock FULL THICKNESS? yes MUSCLE, TENDON OR BONE EXPOSED? no UNDERMINING? see above measurements TUNNELING/SINUS? no APPEARANCE OF WOUND BED : red (no necrotic tissue noted) EXUDATE (AMOUNT, COLOR, ODOR): small/bloody/ no odor FOAM TYPE: silver # OF PIECES USED: 3 pieces (2 in woundbed + 1 for TRAC pad) EDUCATION: Wound dressing changes (how and frequency) Pt voiced understanding. Settings: -125mmHG medium continuous Pt tolerated well.
[2017-04-19 17:26] VITALS: BP 116/46
--- NOTE | 2017-04-19 17:51 | NUR ---
MORPHINE PROFESSOR OF FINE ART ENDED. NEW SYRINGE PLACED, PT SITTING UP ON EDGE OF BED RESTING QUIETLY DENIES ANY FURTHER NEEDS AT THIS TIME. CL IN REACH. WILL CPOC.
--- NOTE | 2017-04-19 19:27 | NUR ---
RESUMED CARE OF PT, DR. DE LA VEGA AT BEDSIDE. LEFT FOREARM INFUSING NS @ KVO AND MORPHINE RECREATION ENGINEER. RIGHT HIP WOUND VAC IN PLACE. CALL LIGHT IN REACH. NO NEEDS AT THIS TIME, WILL CONTINUE TO MONITOR. SEE NURSE ASSESSMENT.
[2017-04-19 22:49] VITALS: BP 109/51
[2017-04-20] VITALS: BP 111/47
--- NOTE | 2017-04-20 00:14 | NUR ---
SOCK DRIER AT BEDSIDE, CALL LIGHT IN REACH. WILL CONTINUE WITH PLAN OF CARE.
--- NOTE | 2017-04-20 05:43 | NUR ---
NO CHANGES FROM PREVIOUS ASSESSMENT, REMAINS NPO INCASE OF SURGERY TODAY. CALL LIGHT IN REACH. WILL CONITNUE TO MONITOR.
[2017-04-20 06:30] LABS: HEMATOCRIT 29.3 % (36.0-48.0); HEMOGLOBIN 9.3 g/dL (12-16); MCH 28.4 pg (26.0-34.0); MCHC 31.7 g/dL (31.0-37.0); MCV 89.3 fL (80.0-100.0); MEAN PLATELET VOLUME 8.7 fL (7.4-10.4); RBC 3.28 10x6/uL (4.00-5.40); RDW 13.9 % (11.5-14.5); WBC 5.3 10x3/uL (4.8-10.8)
[2017-04-20 06:55] LABS: ANION GAP 9.2 mmol/L (8-16); CALCIUM 10.1 mg/dL (8.5-10.1); CARBON DIOXIDE 30.7 mmol/L (21.0-32.0); POTASSIUM - SERUM 3.9 mmol/L (3.5-5.1)
--- NOTE | 2017-04-20 07:30 | NUR ---
ASSESSMENT COMPLETED. TELEMERTY SHOWS SR. WOUND VAC TO RIGHT HIP INCISION. IV TO LEFT FA. UP WITH ASSIST. NPO FOR SURGERY. WILL MONITOR
[2017-04-20 08:00] VITALS: BP 133/51
--- NOTE | 2017-04-20 11:00 | NUR ---
TO OR PER BED
--- NOTE | 2017-04-20 11:03 | NUR ---
RESTING QUIETLY EYES CLOSED RESP UNLABORED
--- NOTE | 2017-04-20 14:19 | NUR ---
BACK FROM OR. V/S STABLE. MORPHINE APPEALS REVIEWER VETERAN PUMP ON, WOUND VAC TO RIGHT HIP
[2017-04-20 16:00] VITALS: BP 123/46
--- NOTE | 2017-04-20 19:06 | NUR ---
UP ON SIDE OF BED. DENIES AANY NEEDS. WOUND VAC IN PLACE. CALL LIGHT IN REACH WITH SR UP
[2017-04-20 21:24] VITALS: BP 140/51
--- NOTE | 2017-04-20 22:34 | NUR ---
PATIENT USING BEDPAN AND PULLED HER IV OUT AT 2039. RIGHT HIP REPLACEMENT HAS DRESSING AND DRAIN INTACT. REFUSED SCD'S . PATIENT DENIES ANY PAIN AT THIS TIME. FAMILY AT BEDSIDE.
--- NOTE | 2017-04-20 23:21 | NUR ---
IV STARTED SUCCESSFULLY IN LEFT HAND. 22 GAUGE .
[2017-04-21 01:40] VITALS: BP 108/58
--- NOTE | 2017-04-21 02:25 | NUR ---
PATIENT RESTING COMFORTABLY. 22G PERIPHERAL IV IN LEFT HAND IS CLEAN DRY AND INTACT. REFUSED SCD'S. ON 2L O2 VIA NASAL CANNULA. REQUESTED BED GOMEZ . RIGHT HIP DRESSING IS CLEAN DRY AND INTACT. WOUND DRAIN IS INTACT AND BLOODY EXUDATE IS VISABLE MOVING IN THE LINE. PATIENT IS WEAK AND REPORTS DISCOMFORT WITH MOVEMENT. SHE IS ALERT AND ORIENTED . 06-21-4 MORPHINE IS MANAGING HER PAIN.
[2017-04-21 04:00] VITALS: BP 133/58
--- NOTE | 2017-04-21 04:30 | NUR ---
AFTER HANGING PT'S 4AM IV ABX, PT NOTED THAT HER IV SITE WAS LEAKING AND HURTING. AFTER ASSESSING IV SITE, IT APPEARS HER IV SITE IS NO LONGER ANY GOOD. PT IS REFUSING TO HAVE A NEW IV SITE PLACED AT THIS TIME SINCE SHE IS BEING D/C'D LATER TODAY. IF FOR SOME REASON SHE IS NOT D/C'D, SHE WILL AGREE TO A NEW IV SITE, BUT PT STATES THAT SHE HAS BEEN STUCK TOO MANY TIMES THIS WEEK (15-20 TIMES). SHE IS HOPING TO GO HOME ON AN PILL FORM OF ANTIBIOTIC. WILL REPORT THIS TO DAY SHIFT NURSE.
--- NOTE | 2017-04-21 05:06 | NUR ---
PT HAS NURSE AND NURSE BASEBALL INSPECTOR IN ROOM TAKING HER OFF BED GOMEZ. PT IS ON 3L OF O2 NC. DENIES ANY NEEDS AT THIS TIME. BED IS LOW AND CALL LIGHT IN REACH. WILL CPOC
[2017-04-21 07:00] LABS: HEMATOCRIT 28.6 % (36.0-48.0); MCH 28.2 pg (26.0-34.0); MCHC 31.5 g/dL (31.0-37.0); MCV 89.7 fL (80.0-100.0); MEAN PLATELET VOLUME 8.6 fL (7.4-10.4); RBC 3.19 10x6/uL (4.00-5.40); WBC 4.6 10x3/uL (4.8-10.8)
[2017-04-21 07:20] LABS: CALCIUM 9.7 mg/dL (8.5-10.1); CARBON DIOXIDE 29.7 mmol/L (21.0-32.0); CREATININE - SERUM 1.1 mg/dL (0.6-1.3); POTASSIUM - SERUM 3.7 mmol/L (3.5-5.1)
[2017-04-21 08:00] VITALS: BP 107/44
[2017-04-21] MEDS ORDERED: AMOXICILLIN875 MG PO (09:34)
--- NOTE | 2017-04-21 10:19 | NUR ---
OUTPATIENT PHYSICAL THERAPIST DCD. UP AMBULATING WITH PT ASSIST. RIGHT HIP W/V DRSG INTACT. WILL CONT. PLAN OF CARE.
[2017-04-21 12:00] VITALS: BP 139/42
--- NOTE | 2017-04-21 12:12 | NUR ---
Patient Name: KARISHMA PAGE Admission Status: ER Accout number: [id number] Admission Date: 04-15-2017 : 1945 Admission Diagnosis:POSTPROC HEMATOMA OF SKIN, SUBCU FOLLOWING OTHER PROCED Attending: SURESH MARADIAGA Current LOS: 6 Anticipated DC Date: 04-21-2017 Planned Disposition: Home with Home Health Primary Insurance: MEDICARE A & B PLANNED EXTERNAL PROVIDER: [facility] Discharge Planning Comments: * Is the patient Alert and Oriented? Yes 0 * How many steps to enter\exit or inside your home? NONE 0 * PCP DR. CONDE 0 * Pharmacy [facility] * Preadmission Environment Home with Family 0 * ADLs Independent 0 * Equipment Bedside Commode Shower Chair Walker Wheelchair 0 * Other Equipment [employer], MEDICAL EQUIPMENT PROVIDER 0 * List name and contact numbers for known caregivers / representatives who currently or will assist patient after discharge: BASILIA PAGE, SPOUSE, 0 * Community resources currently utilized Home Health 0 * Please name any agencies selected above. [email or web address] 0 * Additional services required to return to the preadmission environment? Yes * Can the patient safely return to the preadmission environment? Yes 0 * Has this patient been hospitalized within the prior 30 days at any hospital? Yes 0 CM RECEIVED ORDERS FOR WOUND VAC AND HOME HEALTH; CM MET WITH PT AND SPOUSE IN ROOM TO DISCUSS DISCHARGE PLANNING AND NEEDS. PT REPORTS LIVING AT HOME INDEPENDENTLY WITH HER SPOUSE. PT HAS ALL NEEDED MEDICAL EQUIPMENT AT HOME FROM [employer]; HOME HEALTH IS ON HOLD FROM [facility]. CM DISCUSSED AVAILABILITY OF WOUND VAC, HOME HEALTH, REHAB SERVICES AND MEDICAL EQUIPMENT. PT WOULD LIKE WOUND VAC FROM [facility] AND HOME HEALTH WITH [facility] TO RESUME FOR THE WOUND VAC CHANGES AND THERAPY, REPORTS HER SPOUSE WILL PICK HER UP FOR DISCHARGE HOME. IMPORTANT MESSAGE FROM MEDICARE PROVIDED AND EXPLAINED. CM CALLED ZARI OF [facility], , NOTIFIED OF REFERRAL AND POSSIBLE DISCHARGE TODAY. CM FAXED REFERRAL TO [facility] AT [phone]. CM CALLED [email or web address], , SPOKE TO ABBI, NOTIFIED OF NEED TO ADD WOUND VAC MANAGEMENT FOR ADMIT ON MONDAY IF PT DISCHARGES HOME TODAY. [facility] CAN ACCOMODATE PT'S NEEDS. CM FAXED REFERRAL TO [phone]. CM WAITING HOME VAC ARRANGEMENT COMPLETION BY [facility]. FOR DISCHARGE, NOTIFY [facility] AT [phone], FAX DISCHARGE INFORMATION TO [facility] AT [phone]. Extruder Operator Multiple: Bran Mittal
--- NOTE | 2017-04-21 15:54 | NUR ---
Patient Name: KARISHMA PAGE Encounter No: [id number] : 1945 Primary Insurance: MEDICARE A & B Anticipated DC Date: 04-22-2017 Planned Disposition: Home with Home Health External Planned Provider: [facility] REPLACED BY [facility] DCP follow-up note: HOME VAC APPROVED, PT SIGNED PROOF OF DELIVERY, CM FAXED TO [facility] AT [phone]. HOME VAC DELIVERED TO PT'S ROOM FOR DISCHARGE. CM NOTIFIED [facility] WHO ADVISED DR. RIGGS WILL DC TOMORROW. CM NOTIFIED PT AND ABBI AT REPLACED BY [facility]. HOME HEALTH TO ADMIT ON 04-24-17. FOR DISCHARGE, NOTIFY [facility] AT [phone], FAX DISCHARGE INFORMATION TO [facility] AT [phone]. Carpenter Helper Hardwood Flooring: Bran Mittal
[2017-04-21 16:00] VITALS: BP 118/46
--- NOTE | 2017-04-21 19:40 | NUR ---
ROUNDING NOTE: PT IS SITTING UP IN CHAIR AT THE CHANGE OF SHIFT. PT IS ALERT AND ORIENTED X3. PLAN IS FOR D/C HOME TOMORROW WITH HOME HEALTH CARE TO CHANGE WOUND VAC 3X/WEEK. PT HAS BEEN GETTING UP TO [facility] WITH WALKER WITH ASSISTANCE. 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 SHE CONTINUES TO REFUSE SCDS. PT'S NS AT [facility], 10CC/HR, HAS BEEN D/C'D SINCE IT WAS ONLY IN PLACE D/T HER CHILD WELFARE SOCIAL WORKER. PT CONTINUES TO RECEIVE IV ABX. WILL CONT TO MONITOR.
[2017-04-21 21:05] VITALS: BP 108/40
[2017-04-22 01:17] VITALS: BP 119/74
[2017-04-22 04:35] LABS: HEMOGLOBIN 9.6 g/dL (12-16); MCH 27.7 pg (26.0-34.0); MCV 89.3 fL (80.0-100.0); MEAN PLATELET VOLUME 8.4 fL (7.4-10.4); RBC 3.47 10x6/uL (4.00-5.40); RDW 14.1 % (11.5-14.5); WBC 5.2 10x3/uL (4.8-10.8)
[2017-04-22 04:42] LABS: ANION GAP 10.6 mmol/L (8-16); CALCIUM 10.6 mg/dL (8.5-10.1); CREATININE - SERUM 1.1 mg/dL (0.6-1.3); POTASSIUM - SERUM 3.6 mmol/L (3.5-5.1)
[2017-04-22 05:28] VITALS: BP 118/55
--- NOTE | 2017-04-22 07:25 | NUR ---
PT IN BED RESTING WITH EYES CLOSED. WOUNG VAC INTACT AND FUNCTIONING WELL. NO DISTRESS NOTED. NO IV NOTED. SR UP X 2 C/L IN REACH. WILL CONT TO MONITOR.
[2017-04-22 08:02] VITALS: BP 131/74
--- NOTE | 2017-04-22 08:49 | NUR ---
UP TO [facility]SC. NO NEEDS VOICED. CALL LIGHT IN REACH. WILL MONITOR.
[2017-04-22 12:33] VITALS: BP 123/63
--- NOTE | 2017-04-22 13:07 | NUR ---
FAMILY HERE TO TAKE PT HOME, PT REQUEST PAIN MEDICATION FOR PAIN IN HIP. DR RIGGS HERE TO SEE BEFORE DISCHARGE
--- NOTE | 2017-04-22 13:21 | NUR ---
EXPLAINED DISCHARGE PAPERWORK TO PT AND FAMILY, WENT OVER INSTRUCTIONS TO WOUND VAC, CURRENTLY CLAPPED OFF AND WILL CONNECT WHEN GET TO HOUSE. FAMILY STATED THE DR TOLD THEM THEY COULD DO THAT. ALL BELONGINGS PACK AND SENT HOME WITH THE PATIENT AND FAMILY. PT SIGNED DISCHARGE PAPERS WITHOUT QUESTIONS.
--- NOTE | 2017-04-22 13:36 | NUR ---
PT LEFT IN WHEEL CHAIR WITH HER DAUGHTER AND IN PERSONAL CAR TO BE DISCHARGED WITH HOME HEALTH
--- NOTE | 2017-04-22 19:18 | NUR ---
LATE ENTRY 1155 TC TO [employer] 24/7. NATO SPOKE WITH YOLIS THE ON-CALL NURSE. ADVISED THAT PATIENT WAS DISCHARGED TO HOME TODAY WITH WOUND VAC. YOLIS STATED THE PATIENT WOULD BE SEEN ON MONDAY. FAXED 04/22/17 ORTHO PROGRESS NOTE, DISCHARGE ORDERS AND DISCHARGE MEDICATION LIST TO [phone].
--- NOTE | 2017-04-28 10:54 | OP ---
PATIENT NAME: KARISHMA PAGE MEDICAL RECORD: [id number] :[birth year] LOCATION:D.M2 D.2129 ADMISSION DATE:04/15/17 SURGEON: SURESH MARADIAGA MD DATE OF OPERATION: 04/20/2017 PREOPERATIVE DIAGNOSIS: Infected hematoma of the left hip status post incision and drainage. POSTOPERATIVE DIAGNOSIS: Infected hematoma of the left hip status post incision and drainage. PROCEDURES: 1. Repeat debridement of the wound to include skin, subcutaneous tissue, portions of fat, fascia and muscle. 2. Application of wound VAC. ANESTHESIA: General. INTRAOPERATIVE COMPLICATIONS: None. SUMMARY OF PATHOLOGIC FINDINGS: The wound had closed substantially since my first I&D and thus showed to have good healing potential without need deeper intervention. OPERATIVE SUMMARY IN DETAIL: After obtaining the appropriate preoperative orthopedic surgery consent as well as anesthetic consultation, evaluation and clearance, the patient was brought to the operating room and placed on the operating table in supine position. After general laryngeal mask was administered, the patient was placed in a right lateral decubitus position. All pressure points were well padded to include down leg peroneal pad as well as axillary roll. The patient was held firmly to the operating table using the vacuum pack suction system. Left lower extremity and the hip were then prepped and draped in routine sterile fashion. Cultures were taken. Combination of scalpel, rongeur, and curettage were used to debride all nonviable-appearing tissue and get the tissue back to good bleeding tissue. After all this was cleansed, the wound was irrigated with pulsatile lavage fashion. Further debridement was then followed by placement of a wound VAC. Good suction and seal was achieved with 125 continuous medium suction. The patient was awakened and taken to recovery in stable condition. All final needle and sponge counts were correct. TRANSINT:[id number] Voice Confirmation ID: [id number] DOCUMENT ID: [id number] SURESH MARADIAGA MD at 1054 CC: [id number] DICTATION DATE: 04/20/17 1343 ENGINE ASSEMBLER: 04/20/17 1431 DIS IN 04/22/17 [facility] [address] [place] [address]
[2017-07-19] MEDS ORDERED: HYDROCODONE-APA1 TAB PO (15:31)
== END 2017-04-22 13:50 | disposition home health service (06) | DRG 902 ==
LOC: D.ER 21:10 → D.M2 04-15 01:35
PROVIDERS: Family Medicine; ADMIT Orthopaedic Surgery
PROC: 0JBM0ZZ Excision of Left Upper Leg Subcutaneous Tissue and Fascia, Open Approach (ICD-10-PCS; principal; 2017-04-20 16:45)
PROC: 0KBP0ZZ Excision of Left Hip Muscle, Open Approach (ICD-10-PCS; 2017-04-20 16:45)
DX: L76.32 Postprocedural hematoma of skin and subcutaneous tissue following other procedure (principal); D62 Acute posthemorrhagic anemia; Y83.8 Other surgical procedures as the cause of abnormal reaction of the patient, or of later complication, without mention of misadventure at the time of the procedure; J44.9 Chronic obstructive pulmonary disease, unspecified; F32.9 Major depressive disorder, single episode, unspecified; K21.9 Gastro-esophageal reflux disease without esophagitis; Z87.891 Personal history of nicotine dependence

== ENCOUNTER → 2017-05-23 19:40 | Outpatient (CLI) | payer MEDICARE, BC ==
[2017-04-15 13:28] VITALS: BMI 30.6
[~2017-05-23 19:40] MED LIST changes: +AMOXICILLIN875 MG PO; +BACTRIM DS TABL1 TAB PO; +MILK OF MAGNESI30 ML PO; +VIBRAMYCIN 100100 MG PO
== END | disposition home or self-care (01) ==
LOC: D.LABREF 19:40
DX: S71.001A Unspecified open wound, right hip, initial encounter (principal); X58.XXXA Exposure to other specified factors, initial encounter; Y93.89 Activity, other specified; Y92.89 Other specified places as the place of occurrence of the external cause

== ENCOUNTER → 2017-05-31 14:35 | Outpatient (CLI) | payer MEDICARE, BC ==
[2017-04-15 13:28] VITALS: BMI 30.6
[2017-05-31 15:05] LABS: BASOPHILS 0.2 % (0-2); EOSINOPHILS 1.4 % (0-7); HEMATOCRIT 37.2 % (36.0-48.0); HEMOGLOBIN 11.8 g/dL (12-16); IMMATURE GRANULOCYTES 0.2 % (0-5); LYMPHOCYTES 20.3 % (15-50); MCH 27.6 pg (26.0-34.0); MCHC 31.7 g/dL (31.0-37.0); MCV 87.1 fL (80.0-100.0); MEAN PLATELET VOLUME 8.8 fL (7.4-10.4); MONOCYTES 8.9 % (2-11); PLATELET COUNT 417 10x3/uL (130-400); RBC 4.27 10x6/uL (4.00-5.40); RDW 15.9 % (11.5-14.5); WBC 9.3 10x3/uL (4.8-10.8)
[2017-05-31 16:15] LABS: ERYTHROCYTE SEDIMENTATION RATE 5 mm/hr (0-30)
== END | disposition home or self-care (01) ==
LOC: D.LAB 14:35
PROVIDERS: Orthopaedic Surgery
DX: S71.001A Unspecified open wound, right hip, initial encounter (principal); X58.XXXA Exposure to other specified factors, initial encounter; Y93.89 Activity, other specified; Y92.89 Other specified places as the place of occurrence of the external cause

== ENCOUNTER → 2017-06-22 17:26 | Outpatient (CLI) | payer MEDICARE, BC ==
[2017-04-15 13:28] VITALS: BMI 30.6
== END | disposition home or self-care (01) ==
LOC: D.LABREF 17:26
DX: S71.001A Unspecified open wound, right hip, initial encounter (principal)

== ENCOUNTER 2017-07-20 05:23 | Day surgery (SDC) | payer MEDICARE, BC ==
[2017-07-19 16:03] LABS: BASOPHILS 0.2 % (0-2); EOSINOPHILS 4.7 % (0-7); HEMOGLOBIN 11.5 g/dL (12-16); IMMATURE GRANULOCYTES 0.2 % (0-5); MCH 27.8 pg (26.0-34.0); MCHC 31.9 g/dL (31.0-37.0); MCV 87.2 fL (80.0-100.0); MEAN PLATELET VOLUME 8.6 fL (7.4-10.4); MONOCYTES 7.7 % (2-11); NEUTROPHILS 60.2 % (40-80); RBC 4.13 10x6/uL (4.00-5.40); RDW 16.8 % (11.5-14.5); WBC 5.7 10x3/uL (4.8-10.8)
[2017-07-19 16:04] LABS: PLATELET COUNT 312 10x3/uL (130-400)
[2017-07-19 16:24] LABS: APPEARANCE CLEAR (CLEAR); BILIRUBIN NEGATIVE (NEGATIVE); COLOR YELLOW (YELLOW); GLUCOSE NEGATIVE (NEGATIVE); KETONE NEGATIVE (NEGATIVE); NITRITE NEGATIVE (NEGATIVE); PROTEIN NEGATIVE (NEGATIVE); UROBILINOGEN NORMAL (NORMAL)
[2017-07-19 16:25] LABS: BACTERIA FEW /hpf (NONE SEEN); EPITHELIAL CELLS 0-5 /hpf (0-5); RED CELLS - URINE 25-50 /hpf (0-5)
[2017-07-19 16:37] LABS: APTT 28.4 SECONDS (22.8-39.4); INR 0.94 (0.85-1.17); PROTIME 12.2 SECONDS (11.6-15.0)
[2017-07-19 16:39] LABS: ANION GAP 13.9 mmol/L (8-16); CALCIUM 9.8 mg/dL (8.5-10.1); CARBON DIOXIDE 25.8 mmol/L (21.0-32.0); CREATININE - SERUM 0.9 mg/dL (0.6-1.3); POTASSIUM - SERUM 3.7 mmol/L (3.5-5.1)
[~2017-07-20] VITALS: Ht 167.6 cm; Wt 83.9 kg
--- NOTE | ~2017-07-20 | OP ---
PATIENT NAME: KARISHMA PAGE MEDICAL RECORD: [id number] :[birth year] LOCATION:D.OPS ADMISSION DATE: SURGEON: SURESH MARADIAGA MD DATE OF OPERATION: 07/20/2017 PREOPERATIVE DIAGNOSIS: Open superficial wound of the left hip, status post total hip arthroplasty. POSTOPERATIVE DIAGNOSIS: Open superficial wound of the left hip, status post total hip arthroplasty. PROCEDURES: 1. Excisional debridement to include skin, subcutaneous tissue, portions of fat, fascia and muscle. 2. Placement of wound VAC. SURGEON: Suresh Maradiaga MD ANESTHESIA: General. INTRAOPERATIVE COMPLICATIONS: None. SUMMARY OF PATHOLOGIC FINDINGS: The deepest tract of this wound was 4 cm. It did not track to the prosthesis at any point without evidence of prosthetic infection as the patient had a known postoperative hematoma. OPERATIVE SUMMARY IN DETAIL: After obtaining the appropriate preoperative orthopedic surgery consent as well as anesthetic consultation, evaluation and clearance, the patient was brought to the operating room and placed on the operating table in supine position. After general laryngeal mask airway was administered, the patient was placed in a right lateral decubitus position. All pressure points were well padded to include down leg peroneal pad as well as axillary roll. The patient was held firmly to the operating table using the vacuum pack suction system. The left hip was prepped and draped in a routine sterile fashion. Serial and sequential curettage along with rongeur and excisional debridement was utilized. The anterior aspect of the wound had involuted into the wound and the skin was excised and loosened to avoid further involution of the skin. After copious bulb syringe irrigation was done, wound VAC was applied with 125 mm of negative pressure continuous at medium intensity. The patient was awakened, taken to recovery room in stable condition. All final needle and sponge counts were correct. TRANSINT:[id number] Voice Confirmation ID: [id number] DOCUMENT ID: [id number] SURESH MARADIAGA MD at 1133 CC: [id number] DICTATION DATE: 07/20/172032 FENCE ERECTOR SUPERVISOR: 07/21/17 0155 [facility] 07/20/17 [place] [address]
[2017-07-20 10:03] VITALS: BP 114/45; Ht 167.6 cm; Wt 83.9 kg
[2017-07-20] MEDS ORDERED: BACTRIM DS TABL1 TAB PO (10:30)
[2017-07-20] MEDS ORDERED: HYDROCODONE-APA1 TAB PO (14:05)
== END 2017-07-20 17:00 | disposition home or self-care (01) ==
LOC: D.OPS 05:23 → D.PAN 14:45 → D.OPS 17:00
PROVIDERS: Anesthesiology
DX: B99.9 Unspecified infectious disease (principal); T14.8XXA Other injury of unspecified body region, initial encounter; M16.11 Unilateral primary osteoarthritis, right hip; M25.551 Pain in right hip; Z96.649 Presence of unspecified artificial hip joint; J44.9 Chronic obstructive pulmonary disease, unspecified; K21.9 Gastro-esophageal reflux disease without esophagitis; Z01.812 Encounter for preprocedural laboratory examination

== ENCOUNTER → 2017-08-24 15:49 | Outpatient (CLI) | payer MEDICARE, BC ==
[2017-07-20 10:03] VITALS: BMI 29.9
== END | disposition home or self-care (01) ==
LOC: D.LABREF 15:49
DX: S71.001A Unspecified open wound, right hip, initial encounter (principal); X58.XXXA Exposure to other specified factors, initial encounter; Y93.89 Activity, other specified; Y92.89 Other specified places as the place of occurrence of the external cause

== ENCOUNTER → 2017-11-16 15:22 | Outpatient (CLI) | payer MEDICARE, BC ==
[2017-07-20 10:03] VITALS: BMI 29.9
[2017-11-16 16:43] LABS: BASOPHILS 0.2 % (0-2); EOSINOPHILS 2.2 % (0-7); HEMATOCRIT 36.7 % (36.0-48.0); HEMOGLOBIN 11.8 g/dL (12-16); IMMATURE GRANULOCYTES 0.2 % (0-5); LYMPHOCYTES 35.4 % (15-50); MCH 29.2 pg (26.0-34.0); MCHC 32.2 g/dL (31.0-37.0); MCV 90.8 fL (80.0-100.0); MEAN PLATELET VOLUME 9.8 fL (7.4-10.4); MONOCYTES 6.9 % (2-11); NEUTROPHILS 55.1 % (40-80); PLATELET COUNT 305 10x3/uL (130-400); RBC 4.04 10x6/uL (4.00-5.40); RDW 15.7 % (11.5-14.5); WBC 5.8 10x3/uL (4.8-10.8)
[2017-11-16 17:45] LABS: ERYTHROCYTE SEDIMENTATION RATE 15 mm/hr (0-30)
[2017-11-17 08:39] LABS: C-REACTIVE PROTEIN 1.7 mg/dL (0.0-0.9); CALC OSMOLALITY 269 mosm/kg (275-300); CARBON DIOXIDE 17.4 mmol/L (21.0-32.0); CHLORIDE - SERUM 100 mmol/L (98-107); CREATININE - SERUM 0.8 mg/dL (0.6-1.3); GLUCOSE 112 mg/dL (74-106); SODIUM 135 mmol/L (136-145); UREA NITROGEN 9 mg/dL (7-18); eGFR NON AFRICAN AMERICAN 75 mL/min (90-120)
== END | disposition home or self-care (01) ==
LOC: D.LABREF 15:22
PROVIDERS: Orthopaedic Surgery
DX: M25.551 Pain in right hip (principal)

== ENCOUNTER → 2017-11-24 09:54 | Outpatient (CLI) | payer MEDICARE, BC ==
[2017-07-20 10:03] VITALS: BMI 29.9
== END | disposition home or self-care (01) ==
LOC: D.NM 09:54
DX: Z96.641 Presence of right artificial hip joint (principal)

== ENCOUNTER → 2017-12-15 13:50 | Outpatient (CLI) | payer MEDICARE, BC ==
[2017-07-20 10:03] VITALS: BMI 29.9
[2017-12-15 14:24] LABS: BASOPHILS 0.4 % (0-2); EOSINOPHILS 2.4 % (0-7); HEMATOCRIT 44.6 % (36.0-48.0); HEMOGLOBIN 14.9 g/dL (12-16); IMMATURE GRANULOCYTES 0.3 % (0-5); LYMPHOCYTES 23.5 % (15-50); MCH 30.6 pg (26.0-34.0); MCHC 33.4 g/dL (31.0-37.0); MCV 91.6 fL (80.0-100.0); MEAN PLATELET VOLUME 9.4 fL (7.4-10.4); MONOCYTES 9.1 % (2-11); NEUTROPHILS 64.3 % (40-80); PLATELET COUNT 284 10x3/uL (130-400); RBC 4.87 10x6/uL (4.00-5.40); RDW 15.3 % (11.5-14.5); WBC 11.5 10x3/uL (4.8-10.8)
[2017-12-15 15:41] LABS: ERYTHROCYTE SEDIMENTATION RATE 8 mm/hr (0-30)
== END | disposition home or self-care (01) ==
LOC: D.LAB 13:50
PROVIDERS: Orthopaedic Surgery
DX: M25.552 Pain in left hip (principal)

== ENCOUNTER → 2018-01-15 15:33 | Outpatient (CLI) | payer MEDICARE, BC ==
[2017-07-20 10:03] VITALS: BMI 29.9
== END | disposition home or self-care (01) ==
LOC: D.MRI 15:33
DX: M54.16 Radiculopathy, lumbar region (principal)

== ENCOUNTER → 2018-02-19 13:56 | Outpatient (CLI) | payer MEDICARE, BC ==
[2017-07-20 10:03] VITALS: BMI 29.9
[2018-02-19 16:07] LABS: BASOPHILS 0.3 % (0-2); EOSINOPHILS 6.3 % (0-7); HEMATOCRIT 22.1 % (36.0-48.0); IMMATURE GRANULOCYTES 0.3 % (0-5); LYMPHOCYTES 17.8 % (15-50); MCH 30.3 pg (26.0-34.0); MCV 91.7 fL (80.0-100.0); MEAN PLATELET VOLUME 9.3 fL (7.4-10.4); NEUTROPHILS 65.3 % (40-80); PLATELET COUNT 278 10x3/uL (130-400); RBC 2.41 10x6/uL (4.00-5.40); RDW 14.6 % (11.5-14.5); WBC 6.2 10x3/uL (4.8-10.8)
[2018-02-19 16:21] LABS: HEMOGLOBIN 7.3 g/dL (12-16)
== END | disposition home or self-care (01) ==
LOC: D.LABREF 13:56
PROVIDERS: Orthopaedic Surgery
DX: T84.51XA Infection and inflammatory reaction due to internal right hip prosthesis, initial encounter (principal)

== ENCOUNTER → 2018-02-27 15:56 | Outpatient (CLI) | payer MEDICARE, BC ==
[2017-07-20 10:03] VITALS: BMI 29.9
[2018-02-27 16:48] LABS: BASOPHILS 0.5 % (0-2); EOSINOPHILS 3.8 % (0-7); HEMOGLOBIN 9.4 g/dL (12-16); IMMATURE GRANULOCYTES 0.2 % (0-5); LYMPHOCYTES 23.1 % (15-50); MCH 29.7 pg (26.0-34.0); MCHC 32.4 g/dL (31.0-37.0); MCV 91.8 fL (80.0-100.0); MEAN PLATELET VOLUME 9.2 fL (7.4-10.4); MONOCYTES 10.3 % (2-11); NEUTROPHILS 62.1 % (40-80); RBC 3.16 10x6/uL (4.00-5.40); RDW 15.1 % (11.5-14.5); WBC 5.8 10x3/uL (4.8-10.8)
[2018-02-27 16:56] LABS: PLATELET COUNT 416 10x3/uL (130-400)
[2018-02-27 17:01] LABS: CREATININE - SERUM 0.9 mg/dL (0.6-1.3)
== END | disposition home or self-care (01) ==
LOC: D.LABREF 15:56
PROVIDERS: Orthopaedic Surgery
DX: T84.51XA Infection and inflammatory reaction due to internal right hip prosthesis, initial encounter (principal)

== ENCOUNTER → 2018-03-06 15:29 | Outpatient (CLI) | payer MEDICARE, BC ==
[2017-07-20 10:03] VITALS: BMI 29.9
[2018-03-06 19:07] LABS: BASOPHILS 0.4 % (0-2); EOSINOPHILS 5.9 % (0-7); IMMATURE GRANULOCYTES 0.2 % (0-5); LYMPHOCYTES 24.9 % (15-50); MCV 93.5 fL (80.0-100.0); MEAN PLATELET VOLUME 9.3 fL (7.4-10.4); MONOCYTES 12.5 % (2-11); NEUTROPHILS 56.1 % (40-80); PLATELET COUNT 386 10x3/uL (130-400); WBC 5.1 10x3/uL (4.8-10.8)
== END | disposition home or self-care (01) ==
LOC: D.LABREF 15:29
PROVIDERS: Orthopaedic Surgery
DX: Z51.81 Encounter for therapeutic drug level monitoring (principal); Z79.01 Long term (current) use of anticoagulants; B95.61 Methicillin susceptible Staphylococcus aureus infection as the cause of diseases classified elsewhere